=== PATIENT | male | born 1995 | race Caucasian/White ===

== ENCOUNTER 2022-03-25 00:57 | Emergency (ER) | payer BC ==
[~2022-03-25] VITALS: Ht 185.4 cm; Wt 83.9 kg
[2022-03-25] MEDS ORDERED: diphenhydrAMINE HCL 50 MG/ML VIAL ONE (01:11)
[2022-03-25] MEDS ORDERED: EPINEPHRINE (1:1000) 1 MG/ML AMPUL ONE (01:11)
[2022-03-25] MEDS: EPINEPHRINE (1:1000) MDV 30 MG/30ML VIAL SUBCUT ONE (01:12)
--- NOTE | 2022-03-25 01:12 | NUR ---
EPINIPHRINE 0.3MG SUBQ GIVEN PER MD VERBAL ORDER
[2022-03-25] MEDS ORDERED: methylPREDNISolone SOD SUCC 125 MG/2ML VIAL ONE (01:51)
[2022-03-25] MEDS ORDERED: FAMOTIDINE/PF INJ 20 MG/2 ML VIAL IV ONE (01:58)
[2022-03-25] MEDS: IV NS 0.9% 1,000 ML BAG IV ONE (02:03)
[2022-03-25] MEDS: methylPREDNISolone SOD SUCC 125 MG/2ML VIAL IV ONE (02:04)
[2022-03-25] MEDS: FAMOTIDINE/PF INJ 20 MG/2 ML VIAL IV ONE (02:04)
--- NOTE | 2022-03-25 02:11 | NUR ---
BIBS TO ER BED 9. AAOX4. SOB. PT CAME IN FOR ACCIDENTAL INGESTION OF PEANUT PRODUCT. PT IS NOTED WITH GEN REDNESS AND GEN BODY ITCHING. PT WAS NOTED WITH O2 SAT OF 94% IN RA. PT WAS PLACED IN MONITOR
[2022-03-25] MEDS ORDERED: PRED50TA PO (02:20)
[2022-03-25] MEDS ORDERED: EPIN0.3P3 IM (02:20)
--- NOTE | 2022-03-25 02:28 | NUR ---
Patient discharged to home in stable condition. Written and verbal after care instructions given. Patient verbalizes understanding of instruction.IV removed. Catheter intact and site benign. Pressure and 4x4 applied to site. No bleeding noted. Pt ambulatory with a steady gait
[2022-03-25 02:38] VITALS: BP 122/64
== END 2022-03-25 02:40 | disposition home or self-care (01) ==
LOC: ER 01:08
DX: T78.1XXA Other adverse food reactions, not elsewhere classified, initial encounter (principal); L50.9 Urticaria, unspecified; Z88.2 Allergy status to sulfonamides; Z91.010 Allergy to peanuts; Z88.0 Allergy status to penicillin; Z79.899 Other long term (current) drug therapy; X58.XXXA Exposure to other specified factors, initial encounter
CPT/HCPCS: 99284; 96374; 96361; 96375; 96372; J0171 ×2; J3490; J2930; J7030; J1200